=== PATIENT | female | born 1985 | race American Indian/Alaskan Native ===

== ENCOUNTER 2020-01-03 03:49 | Emergency (ER) | payer MEDICAID, OTHER ==
[~2020-01-03] VITALS: Ht 157.5 cm; Wt 56.0 kg
[~2020-01-03 03:49] MED LIST: AZIT500T34 PO; BUPR1PAT2 TD; DIPH-681 PO; MELO15TA13 PO; NORCO10T PO; ZOLP10TA5 PO
[2020-01-03] MEDS ORDERED: famotidine 20mg tablet PO ONE (04:10)
[2020-01-03] MEDS ORDERED: mag hydrox/Alum hydrox/simeth 30ml oral suspension PO ONE (04:10)
[2020-01-03] MEDS ORDERED: LIDOcaine Viscous 15ml cup TP ONE (04:10)
[2020-01-03 04:33] LABS: BASOPHILS % (AUTO) 0.4 % (0-1); EOSINOPHILS # (AUTO) 0.3 X10'3 (0-0.9); EOSINOPHILS % (AUTO) 2.5 % (0-6); HEMATOCRIT 37.9 % (35.0-45.0); LYMPHOCYTES # (AUTO) 3.3 X10'3 (1.1-4.8); LYMPHOCYTES % (AUTO) 32.7 % (21-51); MEAN CORPUSCULAR HEMOGLOBIN 32.5 PG (27.0-31.0); MEAN CORPUSCULAR HGB CONC 34.3 g/dL (33.0-36.5); MEAN CORPUSCULAR VOLUME 94.7 FL (78-98); MEAN PLATELET VOLUME 8.7 FL (7.4-10.4); MONOCYTES # (AUTO) 1.2 X10'3 (0-0.9); MONOCYTES % (AUTO) 11.5 % (2-12); NEUTROPHILS # (AUTO) 5.4 X10'3 (1.8-7.7); NEUTROPHILS % (AUTO) 52.9 % (42-75); PLATELET COUNT 199 X10'3 (140-440); RED CELL DISTRIBUTION WIDTH 13.8 % (11.5-14.5); WHITE BLOOD COUNT 10.1 X10'3 (4.5-11.0)
[2020-01-03 04:34] LABS: CLARITY,URINE CLEAR (Clear); GLUCOSE, URINE NEGATIVE (Neg); KETONES,URINE NEGATIVE (Neg); LEUKOCYTE ESTERASE ,URINE NEGATIVE (Neg); NITRITES, URINE POSITIVE (Neg); OCCULT BLOOD,URINE NEGATIVE (Neg); PROTEIN,URINE NEGATIVE (Neg)
[2020-01-03 04:38] LABS: COLOR,URINE DARK YELLOW (Yellow); UA COLLECTION TYPE CLN CATCH MIDSTREAM
[2020-01-03 04:41] LABS: BACTERIA,URINE 1+ /HPF (Neg); MUCUS STRANDS NONE SEEN /LPF (Neg); RBC,URINE NONE SEEN /HPF (0-2); SQUAMOUS EPITHELIAL CELL,UR FEW /LPF (FEW); WBC,URINE 0-4 /HPF (0-4)
[2020-01-03 04:56] LABS: ALANINE AMINOTRANSFERASE 15 U/L (12-78); ALBUMIN 3.6 G/DL (3.4-5.0); ALBUMIN/GLOBULIN RATIO 1.2 (1.1-1.5); ALKALINE PHOSPHATASE 99 IU/L (46-116); ANION GAP 8 (8-16); ASPARTATE AMINO TRANSFERASE 13 U/L (10-37); BILIRUBIN,TOTAL 0.2 MG/DL (0.1-1.0); BLOOD UREA NITROGEN 7 MG/DL (7-18); BUN/CREATININE RATIO 11.1 (6.6-38.0); CALCIUM 8.3 MG/DL (8.5-10.1); CHLORIDE 108 MMOL/L (99-107); CREATININE 0.63 MG/DL (0.40-0.90); GLUCOSE 121 MG/DL (70-104); LIPASE 195 U/L (73-393); POTASSIUM 3.9 MMOL/L (3.5-5.1); SODIUM 141 MMOL/L (135-145); TOTAL CARBON DIOXIDE 24.8 MMOL/L (24-32); TOTAL PROTEIN 6.5 G/DL (6.4-8.2); eGFR > 90 ML/MIN
[2020-01-03] MEDS ORDERED: normal saline 1000ML IV soln IVB ONE (05:00)
[2020-01-03] MEDS ORDERED: ondansetron/PF 4mg/2ml inj IV ONE (05:00)
[2020-01-03] MEDS ORDERED: morphine 4 MG/ML inj SYRINge IV ONE (05:00)
[2020-01-03] MEDS ORDERED: ketorolac trometh. 30mg/ml inj. IV ONE (05:40)
[2020-01-03 08:45] VITALS: BP 131/63
[2020-01-03] MEDS ORDERED: ONDA8TAB6 PO (08:55)
[2020-01-03] MEDS ORDERED: HYDR-3965 PO (08:55)
[2020-01-03] MEDS ORDERED: acetaminophen 325mg tablet PO ONE (09:20)
== END 2020-01-03 09:30 | disposition home or self-care (01) ==
LOC: ER 03:50
DX: K80.20 Calculus of gallbladder without cholecystitis without obstruction (principal); R10.11 Right upper quadrant pain; R10.13 Epigastric pain; R11.0 Nausea; Z90.710 Acquired absence of both cervix and uterus; Z56.0 Unemployment, unspecified; Z79.2 Long term (current) use of antibiotics; Z79.899 Other long term (current) drug therapy
CPT/HCPCS: 36415; 74176; 76700; 80053; 81001; 83690; 85025; 87077; 87088; 87186; 96374; 96375; 99284; J1885; J2270; J2405; J7030

== ENCOUNTER 2023-05-20 22:23 | Emergency (ER) | payer SELFPAY ==
[~2023-05-20] VITALS: Ht 157.5 cm; Wt 68.2 kg
[~2023-05-20 22:23] MED LIST changes: +ONDA8TAB6 PO
[2023-05-20 22:33] VITALS: BP 128/89
[2023-05-20] MEDS ORDERED: LIDOcaine 1%/PF 5ML 10 MG/ML VIAL IJ ONE (23:45)
[2023-05-21 00:26] LABS: CLARITY,URINE SLIGHTLY CLOUDY (Clear); COLOR,URINE YELLOW (Yellow); GLUCOSE, URINE NEGATIVE (Neg); KETONES,URINE NEGATIVE (Neg); LEUKOCYTE ESTERASE ,URINE NEGATIVE (Neg); NITRITES, URINE POSITIVE (Neg); OCCULT BLOOD,URINE NEGATIVE (Neg); PH,URINE 6.5 (4.8-8.0); PROTEIN,URINE NEGATIVE (Neg); UROBILINOGEN,URINE 0.2 E.U/dL (0.2-1.0)
[2023-05-21 00:41] LABS: UA COLLECTION TYPE CLN CATCH MIDSTREAM
[2023-05-21 00:44] LABS: BACTERIA,URINE 4+ /HPF (Neg); SQUAMOUS EPITHELIAL CELL,UR MODERATE /LPF (FEW); WBC,URINE 0-4 /HPF (0-4)
[2023-05-21 00:45] LABS: MUCUS STRANDS MODERATE /LPF (Neg)
[2023-05-21 00:47] LABS: RBC,URINE 0-2 /HPF (0-2)
[2023-05-21] MEDS ORDERED: CEPH-585 PO (00:51)
== END 2023-05-21 01:08 | disposition home or self-care (01) ==
LOC: ER 22:24
DX: L03.011 Cellulitis of right finger (principal); N39.0 Urinary tract infection, site not specified; Z79.899 Other long term (current) drug therapy; Z79.1 Long term (current) use of non-steroidal anti-inflammatories (NSAID); Z79.2 Long term (current) use of antibiotics
CPT/HCPCS: 10060; 81001; 99283; A6449